=== PATIENT | male | born 1970 | race Caucasian/White ===

== ENCOUNTER 2018-05-02 17:39 | Emergency (ER) | payer SELFPAY, OTHER | END 2018-05-02 20:30 | disposition home or self-care (01) | LOC: JER 17:39 ==

== ENCOUNTER 2020-02-13 12:59 | Emergency (ER) | payer SELFPAY ==
[2020-02-13 13:30] VITALS: TEMP 98.4; BMI 31.6
[2020-02-13] MEDS ORDERED: LACTATED RINGERS SOLUTION 1000 ML INFUS.BAG IV ONE (14:10)
[2020-02-13 14:40] LABS: BASO % 0.7 % (0-2.0); EOS % 0.4 % (0-4.5); HEMOGLOBIN 16.1 GM/dL (11.7-16.9); LYMPH % 5.8 % (8-40); MCH 30.8 pg (25.7-33.7); MCHC 34.3 g/dl (32.0-35.9); MEAN CELL VOLUME 89.7 fl (80-96); MEAN PLT VOLUME 10.4 fl (7.5-11.1); MONO % 9.6 % (3.8-10.2); NEUT % 83.5 % (42.8-82.8); RBC 5.24 M/mm3 (4.00-5.60); RDW 13.4 % (11.9-15.9); WHITE BLOOD COUNT 9.3 K/mm3 (4.0-10.0)
[2020-02-13 15:07] LABS: CHLORIDE 104 mmol/L (98-107); POTASSIUM 3.9 mmol/L (3.5-5.1); SODIUM 139 mmol/L (136-145)
[2020-02-13 15:10] LABS: CALCIUM 8.5 mg/dL (8.5-10.1)
[2020-02-13 15:11] LABS: ALBUMIN 3.7 g/dl (3.4-5.0); ANION GAP 5 MMOL/L (8-16); BLOOD UREA NITROGEN 13.2 mg/dL (7-18); CO2 30 mmol/L (21-32); GLUCOSE,RANDOM 102 mg/dL (74-106)
[2020-02-13 15:14] LABS: CREATININE 0.8 mg/dL (0.55-1.3); SGOT/AST 67 U/L (15-37); SGPT/ALT 50 U/L (13-61)
[2020-02-13 15:15] LABS: BILIRUBIN,TOTAL 0.6 mg/dL (0.2-1)
[2020-02-13 15:16] LABS: TOT PROT 7.7 g/dl (6.4-8.2)
[2020-02-13 15:17] LABS: ALK PHOS 79 U/L (45-117)
[2020-02-13 15:46] LABS: PLATELET ESTIMATE DECREASED
[2020-02-13 15:52] LABS: PLATELET COUNT 141 K/MM3 (134-434)
[2020-02-13 16:58] VITALS: BP 126/70; PULSE 90
== END 2020-02-13 17:00 | disposition home or self-care (01) ==
LOC: JER 12:59
DX: T40.1X1A Poisoning by heroin, accidental (unintentional), initial encounter (principal)
CPT/HCPCS: 36415; 71045-TC-FY; 80053; 80307; 82550; 82553; 84484; 85025; 93005; 93010; 99284-25